=== PATIENT | male | born 1995 | race African-American/Black ===

== ENCOUNTER 2024-05-19 11:44 | Observation (INO) ==
--- NOTE | 2024-05-19 12:38 | XRay Report ---
XR chest 1V not portable CLINICAL HISTORY: Chest pain, nonspecific COMPARISON STUDY: No previous studies for comparison. FINDINGS: Lung volumes are normal. Lungs are clear. There is no pneumothorax or pleural effusion. Car diac size is normal. Mediastinal contours are normal. There is no evidence for pulmonary edema. IMPRESSION: No acute cardiopulmonary findings. ACT 112: Negative or not required by law. Electronically signed by: Amauri Sloan M.D. 05/19/2024 12:37 PM
[2024-05-19 12:40] LABS: Basophils # (auto) 0.04 K/uL (0.00-0.20); Basophils % (auto) 1.1 %; Eosinophils # (auto) 0.13 K/uL (0.00-0.50); Eosinophils % (auto) 3.5 %; Hematocrit (blood only) 46.3 % (42.0-52.0); Hemoglobin 15.3 g/dl (14.0-18.0); Immature Granulocytes # (auto) 0.04 K/uL (0.01-0.20); Immature Granulocytes % (auto) 1.1 %; Lymphocytes # (auto) 1.47 K/uL (1.20-3.40); Lymphocytes % (auto) 39.8 %; Mean Corpuscular Volume 78.7 fL (80.0-100.0); Mean Platelet Volume 9.4 fL (9.4-12.4); Monocytes # (auto) 0.33 K/uL (0.11-0.59); Monocytes % (auto) 8.9 %; Neutrophils # (auto) 1.68 K/uL (1.40-6.50); Neutrophils % (auto) 45.6 %; Platelet Count 336 K/uL (130-400); RDW Coefficient of Variation 12.1 % (11.5-14.5); RDW Standard Deviation 34.5 fL (36.4-46.3); Red Blood Count 5.88 M/uL (4.70-6.10); White Blood Count 3.69 K/ul (4.8-10.8)
[2024-05-19 12:59] LABS: Albumin Level 4.9 gm/dl (3.4-5.0); Anion Gap 5 (3-11); Bilirubin,Total 1.3 mg/dl (0.2-1.0); Calcium 10.3 mg/dl (8.6-10.3); Carbon Dioxide 32 mmol/L (21-32); Chloride 105 mmol/L (98-107); Potassium 4.5 mmol/L (3.5-5.1); Sodium 142 mmol/L (136-145)
[2024-05-19 13:05] LABS: Alanine Aminotransferase 39 U/L (7-52); Albumin Globulin Ratio 1.6 (0.9-2); Alkaline Phosphatase 103 U/L (34-104); Aspartate Aminotransferase 29 U/L (13-39); BUN Creatinine Ratio 10.1 (10-20); Blood Urea Nitrogen 13 mg/dl (6-23); C Reactive Protein < 0.50 mg/dl (0-0.5); Creatinine Clr Calc Pharmacy 102.6 ml/min; Globulin 3.1 gm/dl (2.5-4.0); Glucose 88 mg/dl (70-99(Fasting))
[2024-05-19 13:07] LABS: Partial Thromboplastin Time 26 Seconds (21-31); Prothrombin Time 10.7 Seconds (9.0-12.0)
[2024-05-19 13:10] LABS: Troponin I High Sensitivity 20.3 pg/ml (0-20)
[2024-05-19] MEDS: ASPIRIN CHEW 324 MG PO STA (14:21)
--- NOTE | 2024-05-19 15:32 | XCELERA ---
[id number]
--- NOTE | 2024-05-19 16:44 | Emergency Department Note ---
History of Present Illness General Chief complaint: Chest Pain Stated complaint: CHEST PAIN, GRADUAL PAIN/DIZZINES FOR PAST 3 WKS Time Seen by Provider: 05/19/24 12:18 Source: patient Limitations: no limitations History of Present Illness Maximum Pain Intensity: 6 Patient is a 28-year-old male presenting from [facility] with left-sided chest pain for the past 3 weeks. Ports the pain radiates from his left chest under his left breast. Worse when he lays flat. He had similar episode a year prior which resolved on its own. Denies any lightheadedness, dizziness, shortness of breath, nausea, vomiting, lower extremity swelling or pain. No family or individual cardiac history. No history of DVT/PE. No drug or alcohol use reported. Home Medications Medication Instructions Recorded Confirmed Type cetirizine 10 mg tablet (Zyrtec) 10 mg PO DAILY 05/19/24 05/19/24 History Allergies Allergy/AdvReac Type Severity Reaction Status Date / Time No Known Allergies Allergy Verified 05/19/24 16:24 Past Med/Surg History Problem List (Updated 05/19/24 @ 16:44 by Gm Rey MD) Pericarditis (Acute) Social History Smoking Status: Never smoker Preferred Language: Luxembourgish Feels Safe at Home: Yes Review of Systems See HPI for pertinent positives & negatives. Physical Exam Vital Signs Vital Signs - 24 hr 05/19/24 11:48 05/19/24 13:48 05/19/24 13:52 Temperature 36.6 C Temperature Source Temporal Artery Scan Pulse Rate 61 51 L Pulse Rate [Apical] Pulse Rate from SpO2 Sensor Pulse Rhythm Pulse Rhythm [Apical] Pulse Strength [Apical] Respiratory Rate 20 Respiratory Effort / Characteristics Non-Labored Spontaneous Respiratory Depth Normal Respiratory Pattern Blood Pressure 134/71 Blood Pressure [Left Arm] Blood Pressure Mean 92 Blood Pressure Mean [Left Arm] Blood Pressure Position [Left Arm] Pulse Oximetry 98 100 Oxygen Delivery Method Room Air Room Air Sepsis Recent Fever Within 48 Hours No Sepsis New/Unexplained Change in Mental Status No Sepsis Action Taken by Nursing No Action Required 05/19/24 13:52 05/19/24 13:52 05/19/24 14:00 Temperature Temperature Source Pulse Rate 50 L Pulse Rate [Apical] 50 L Pulse Rate from SpO2 Sensor Pulse Rhythm Regular Pulse Rhythm [Apical] Regular Pulse Strength [Apical] Normal Respiratory Rate 18 18 Respiratory Effort / Characteristics Non-Labored Spontaneous Respiratory Depth Normal Respiratory Pattern Regular Blood Pressure 125/75 Blood Pressure [Left Arm] 110/87 Blood Pressure Mean 103 Blood Pressure Mean [Left Arm] 94 Blood Pressure Position [Left Arm] Semi-fowlers Pulse Oximetry 99 99 Oxygen Delivery Method Room Air Room Air Sepsis Recent Fever Within 48 Hours Sepsis New/Unexplained Change in Mental Status Sepsis Action Taken by Nursing 05/19/24 14:15 05/19/24 14:30 05/19/24 15:00 Temperature Temperature Source Pulse Rate 53 L 59 L 46 L Pulse Rate [Apical] Pulse Rate from SpO2 Sensor 54 L 59 L Pulse Rhythm Pulse Rhythm [Apical] Pulse Strength [Apical] Respiratory Rate 18 24 18 Respiratory Effort / Characteristics Respiratory Depth Respiratory Pattern Blood Pressure 133/62 141/90 H Blood Pressure [Left Arm] Blood Pressure Mean 85 107 Blood Pressure Mean [Left Arm] Blood Pressure Position [Left Arm] Pulse Oximetry 98 97 97 Oxygen Delivery Method Room Air Room Air Room Air Sepsis Recent Fever Within 48 Hours Sepsis New/Unexplained Change in Mental Status Sepsis Action Taken by Nursing 05/19/24 15:33 05/19/24 16:00 Temperature Temperature Source Pulse Rate 52 L 55 L Pulse Rate [Apical] Pulse Rate from SpO2 Sensor 52 L Pulse Rhythm Pulse Rhythm [Apical] Pulse Strength [Apical] Respiratory Rate 18 16 Respiratory Effort / Characteristics Respiratory Depth Respiratory Pattern Blood Pressure 135/81 126/84 Blood Pressure [Left Arm] Blood Pressure Mean 99 98 Blood Pressure Mean [Left Arm] Blood Pressure Position [Left Arm] Pulse Oximetry 98 93 Oxygen Delivery Method Room Air Room Air Sepsis Recent Fever Within 48 Hours Sepsis New/Unexplained Change in Mental Status Sepsis Action Taken by Nursing See below Constitutional WD/WN, vitals as above Respiratory normal respiratory effort, lungs clear to auscultation Cardiovascular RRR, no murmur, no edema Extremities: normal capillary refill; no calf tenderness, no pedal edema and no edema Course Administered Medications Discontinued Medications Aspirin (Aspirin Chew 324 Mg) 324 mg PO NOW STA Stop: 05/19/24 14:08 Last Admin: 05/19/24 14:21 Dose: 324 mg Documented By: Medical Decision Making Differential Diagnosis ACS, DVT, myocarditis, pericarditis, costochondritis, GERD, anxiety Medical Records Attestation: I reviewed the patient's medical records. Home Medications Current Medication List: was personally reviewed by me Laboratory Data Attestation: I reviewed the patient's lab results. 05/19/24 12:05 05/19/24 12:05 Lab Results 05/19/24 05/19/24 Range/Units 12:05 14:20 WBC 3.69 L (4.8-10.8) K/ul RBC 5.88 (4.70-6.10) M/uL Hgb 15.3 (14.0-18.0) g/dl Hct 46.3 (42.0-52.0) % MCV 78.7 L (80.0-100.0) fL MCH 26.0 (25.0-34.0) pg MCHC 33.0 (32.0-36.0) g/dL RDW Std Deviation 34.5 L (36.4-46.3) fL RDW Coeff of Clary 12.1 (11.5-14.5) % Plt Count 336 (130-400) K/uL MPV 9.4 (9.4-12.4) fL Immature Gran % (Auto) 1.1 % Neut % (Auto) 45.6 % Lymph % (Auto) 39.8 % Swift % (Auto) 8.9 % Eos % (Auto) 3.5 % Baso % (Auto) 1.1 % Neut # (Auto) 1.68 (1.40-6.50) K/uL Lymph # (Auto) 1.47 (1.20-3.40) K/uL Swift # (Auto) 0.33 (0.11-0.59) K/uL Eos # (Auto) 0.13 (0.00-0.50) K/uL Baso # (Auto) 0.04 (0.00-0.20) K/uL Immature Gran # (Auto) 0.04 (0.01-0.20) K/uL ESR 22 H (0-15) mm/hr PT 10.7 (9.0-12.0) Seconds INR 1.0 (0.9-1.1) APTT 26 (21-31) Seconds PTT Ratio 1.0 Sodium 142 (136-145) mmol/L Potassium 4.5 (3.5-5.1) mmol/L Chloride 105 (98-107) mmol/L Carbon Dioxide 32 (21-32) mmol/L Anion Gap 5 (3-11) BUN 13 (6-23) mg/dl Creatinine 1.29 (0.6-1.4) mg/dl Est Cr Clr Drug Dosing 102.6 ml/min eGFR 76.50 BUN/Creatinine Ratio 10.1 (10-20) Glucose 88 (70-99(Fasting)) mg/dl Calcium 10.3 (8.6-10.3) mg/dl Total Bilirubin 1.3 H (0.2-1.0) mg/dl AST 29 (13-39) U/L ALT 39 (7-52) U/L Alkaline Phosphatase 103 (34-104) U/L Troponin I High Sens 20.3 H 29.3 H (0-20) pg/ml C-Reactive Protein < 0.50 (0-0.5) mg/dl Total Protein 8.0 (6.0-8.3) gm/dl Albumin 4.9 (3.4-5.0) gm/dl Globulin 3.1 (2.5-4.0) gm/dl Albumin/Globulin Ratio 1.6 (0.9-2) Imaging Data Attestation: I personally reviewed and interpreted this imaging study as follows: My Impression: No acute cardiopulmonary process noted. Radiologist's Impression: Chest X-Ray 05/19/24 11:50 XR chest 1V not portable CLINICAL HISTORY: Chest pain, nonspecific COMPARISON STUDY: No previous studies for comparison. FINDINGS: Lung volumes are normal. Lungs are clear. There is no pneumothorax or pleural effusion. Cardiac size is normal. Mediastinal contours are normal. There is no evidence for pulmonary edema. IMPRESSION: No acute cardiopulmonary findings. ACT 112: Negative or not required by law. Electronically signed by: Amauri Sloan M.D. 05/19/2024 12:37 PM ECG Data Attestation: I personally reviewed and interpreted this ECG as follows: Indication: + chest pain Rate (beats per minute): 51 Rhythm: + normal sinus ECG Intervals/blocks: + Normal QRS, + Normal MS and + Normal QT-c ECG Hayden: + Normal ECG ST segments: + ST elevation (diffuse w/o reciprocal changes ) Comparison ECG Date: no prior available Additional Comments: Diffuse concave ST elevations without reciprocal changes noted. Consistent with pericarditis. MDM Narrative Patient is a 28-year-old male who presents with 3 weeks of ongoing chest pain. PERC negative and low concern for PE. Pain is positional and worse when laying flat. EKG shows diffuse ST elevations without reciprocal changes. Clinical picture along with EKG consistent with pericarditis. Initial troponin of 20. I reviewed the case with on-call cardiology with [facility] group who recommends echocardiogram and repeat troponin. Echocardiogram read as normal per cardiology. Repeat troponin of 29. Cardiology recommends treatment with anti-inflammatories and colchicine. Patient will be admitted to hospitalist service for further management of myopericarditis. Impression & Plan Pericarditis Admit for ACS r/o Discharge Plan Visit Data Chief Complaint: Chest Pain Stated Complaint: CHEST PAIN, GRADUAL PAIN/DIZZINES FOR PAST 3 WKS ED Provider: Gm Rey Discharge Problem: Pericarditis Forms Stand Alone Forms: My [facility] Prescriptions Prescriptions: No Action cetirizine [Zyrtec] 10 mg Tablet 10 mg PO DAILY Referrals Referrals: Carrillo WILLARD [Primary Care Provider] -
--- NOTE | 2024-05-19 19:24 | History & Physical Report ---
Date of Service May 19, 2024 Assessment & Plan (1) Pericarditis: Plan Pt is a 28 yo male without a significant past medical history who presents to the hospital on 05/19 for chest pain and admitted for pericarditis. #Pericarditis - EKG on admission with diffuse ST elevations - echo on admission with normal EF, no pericardial effusion - trop on admission 20 -> 29, will trend to peak - will do antiinflammatory therapy; colchicine and ibuprofen - am EKG ordered VTE prophylaxis: low risk History of Present Illness Chief Complaint: Chest pain Primary Care Provider: SUDHEER Poe Pt is a 28 yo male without a significant past medical history who presents to the hospital on 05/19 for chest pain and admitted for pericarditis. Pt states that symptoms started about 3 weeks ago. He states he usually works out 4x a week and has been able to do so without issue, but the last 3 weeks, particularly when laying flat at night, he has noticed L sided chest pain/tightness under the breast. He denies SOB. He denies syncopal episodes or feeling like he may pass out. No palpitations. No nausea or vomiting or diarrhea. He states he had an EKG in office years ago for chest pain that was similar but different but the EKG then was fine and no episode of chest pain again until the last 3 weeks. No family hx of early cardiac disease. The chest pain does not worsen with exertion. Allergies Allergy/AdvReac Type Severity Reaction Status Date / Time No Known Allergies Allergy Verified 05/19/24 16:24 Home Medications Medication Instructions Recorded Confirmed Type cetirizine 10 mg tablet (Zyrtec) 10 mg PO DAILY 05/19/24 05/19/24 History Past Med/Surg History Problem List (Updated 05/19/24 @ 16:44 by Gm Rey MD) Pericarditis (Acute) Social History Smoking Status: Unknown if ever smoked Do You Dip or Chew Tobacco: No; Hx Alcohol Use: No Hx Substance Use: No Preferred Language: Mongolian Communication Ability: Effective Bus Monitor Required: No Beliefs That Will Affect Care: None Current Living Situation: Other Current Living Situation Comment: SUDHEER POE Feels Safe at Home: Yes Assistive Devices: None Review of Systems Review of Systems: Per HPI. Physical Exam Physical Exam: General: Alert and oriented, no acute distress, HEENT: Normocephalic, moist oral mucosa, Cardio: Regular rate and rhythm, no murmur, no tenderness to palpation of chest pain area Resp: Lungs clear to auscultation b/l, no wheezes or rhonchi, Skin: Warm, pink, dry, Results & Data Results & Data Vital Signs (Past 12 Hours) Vital Signs Temp Pulse Pulse Resp BP BP Pulse Ox 05/19/24 19:00 65 17 144/79 H 97 05/19/24 18:33 51 L 14 141/94 H 98 05/19/24 18:00 58 L 20 147/84 H 99 05/19/24 17:42 54 L 05/19/24 17:30 50 L 18 145/81 H 98 05/19/24 17:00 50 L 18 139/83 97 05/19/24 16:30 56 L 20 136/79 97 05/19/24 16:00 55 L 16 126/84 93 05/19/24 15:33 52 L 18 135/81 98 05/19/24 15:00 46 L 18 141/90 H 97 05/19/24 14:30 59 L 24 133/62 97 05/19/24 14:15 53 L 18 98 05/19/24 14:00 125/75 05/19/24 13:52 50 L 18 99 05/19/24 13:52 50 L 18 110/87 99 05/19/24 13:52 100 05/19/24 13:48 51 L 05/19/24 11:48 36.6 C 61 20 134/71 98 O2 Del Method 05/19/24 19:00 Room Air 05/19/24 18:33 Room Air 05/19/24 18:00 Room Air 05/19/24 17:42 05/19/24 17:30 Room Air 05/19/24 17:00 Room Air 05/19/24 16:30 Room Air 05/19/24 16:00 Room Air 05/19/24 15:33 Room Air 05/19/24 15:00 Room Air 05/19/24 14:30 Room Air 05/19/24 14:15 Room Air 05/19/24 14:00 05/19/24 13:52 Room Air 05/19/24 13:52 Room Air 05/19/24 13:52 Room Air 05/19/24 13:48 05/19/24 11:48 Room Air Supervising Physician Co-Signing Physician Notes I personally saw and examined the patient. I independently reviewed the labs, EKG, imaging, problem list, medication list, past medical history and family history. I verified all vlae points and agree with Dr. Desi Armijo DO with the following exceptions and/or additions: 28-year-old male presents to the ER with chest pain. Nonexertional. Worse on lying down. O/E HS RRR, no murmurs, Chest CTAB A/P Pericarditis - colchicine + ibuprofen, TTE without pericardial effusion, monitor overnight Resident Activity Tracking Resident Involvement: Resident Care Provided Care Provided: Adult Hospital Medicine
[2024-05-19] MEDS: COLCHICINE 0.6 MG TAB PO SCH (20:12)
[2024-05-19] MEDS: IBUPROFEN 600 MG TAB PO SCH (20:12)
[2024-05-19] MEDS: IBUPROFEN 200 MG/10 ML UDC PO SCH (20:13)
[2024-05-19] MEDS ORDERED: IBUPROFEN 600 MG TAB PO SCH (21:00)
--- NOTE | 2024-05-19 21:37 | Electrocardiogram Report ---
Test Reason : Blood Pressure : */* mmHG Vent. Rate : 51 BPM Atrial Rate : 51 BPM P-R Int : 220 ms QRS Dur : 78 ms QT Int : 376 ms P-R-T Axes : 53 12 27 degrees QTcB Int : 346 ms Sinus bradycardia with sinus arrhythmia with 1st degree A-V block Cannot rule out Anterior infarct , age undetermined ST elevation, consider early repolarization vs pericarditis Abnormal ECG No previous ECGs available Confirmed by Luther Tirado ([id number]) on 05/19/2024 9:36:59 PM Referred By: Confirmed By: Luther Tirado
[2024-05-19] MEDS ORDERED: ACETAMINOPHEN 325 MG TAB PO PRN (22:52)
[2024-05-19] MEDS ORDERED: POLYETHYLENE (MIRALAX) 17 GM PACK PO PRN (22:52)
[2024-05-19] MEDS ORDERED: ONDANSETRON INJ 2 MG/ML 2 ML VIAL IV PRN (22:52)
[2024-05-20] MEDS: IBUPROFEN 600 MG TAB PO SCH (02:38)
[2024-05-20 06:04] LABS: Basophils # (auto) 0.05 K/uL (0.00-0.20); Basophils % (auto) 1.4 %; Eosinophils # (auto) 0.24 K/uL (0.00-0.50); Eosinophils % (auto) 6.6 %; Hematocrit (blood only) 44.4 % (42.0-52.0); Hemoglobin 14.9 g/dl (14.0-18.0); Immature Granulocytes # (auto) 0.04 K/uL (0.01-0.20); Immature Granulocytes % (auto) 1.1 %; Lymphocytes # (auto) 1.73 K/uL (1.20-3.40); Lymphocytes % (auto) 47.7 %; Mean Corpuscular Hemoglobin 26.1 pg (25.0-34.0); Mean Corpuscular Hgb Conc 33.6 g/dL (32.0-36.0); Mean Corpuscular Volume 77.9 fL (80.0-100.0); Mean Platelet Volume 9.2 fL (9.4-12.4); Monocytes # (auto) 0.35 K/uL (0.11-0.59); Monocytes % (auto) 9.6 %; Neutrophils # (auto) 1.22 K/uL (1.40-6.50); Neutrophils % (auto) 33.6 %; Platelet Count 307 K/uL (130-400); RDW Coefficient of Variation 12.2 % (11.5-14.5); RDW Standard Deviation 34.2 fL (36.4-46.3); White Blood Count 3.63 K/ul (4.8-10.8)
[2024-05-20 06:24] LABS: Albumin Globulin Ratio 1.7 (0.9-2); Albumin Level 4.3 gm/dl (3.4-5.0); BUN Creatinine Ratio 12.9 (10-20); Bilirubin,Total 1.4 mg/dl (0.2-1.0); Calcium 9.5 mg/dl (8.6-10.3); Creatinine Clr Calc Pharmacy 105.9 ml/min; Globulin 2.6 gm/dl (2.5-4.0); Potassium 4.4 mmol/L (3.5-5.1); Total Protein 6.9 gm/dl (6.0-8.3)
--- NOTE | 2024-05-20 06:39 | Billing Data ---
Date of Service May 19, 2024 Coding Level of Care Code 62091 INT INP/OBS CARE
[2024-05-20 08:06] VITALS: RESP 20
--- NOTE | 2024-05-20 12:33 | Discharge Summary ---
Date of Service May 20, 2024 Admission HPI Per Admitting Provider Pt is a 28 yo male without a significant past medical history who presents to the hospital on 05/19 for chest pain and admitted for pericarditis. Pt states that symptoms started about 3 weeks ago. He states he usually works out 4x a week and has been able to do so without issue, but the last 3 weeks, particularly when laying flat at night, he has noticed L sided chest pain/tightness under the breast. He denies SOB. He denies syncopal episodes or feeling like he may pass out. No palpitations. No nausea or vomiting or diarrhea. He states he had an EKG in office years ago for chest pain that was similar but different but the EKG then was fine and no episode of chest pain again until the last 3 weeks. No family hx of early cardiac disease. The chest pain does not worsen with exertion. Admission Exam Per Admitting Provider General: Alert and oriented, no acute distress, HEENT: Normocephalic, moist oral mucosa, Cardio: Regular rate and rhythm, no murmur, no tenderness to palpation of chest pain area Resp: Lungs clear to auscultation b/l, no wheezes or rhonchi, Skin: Warm, pink, dry Principal Diagnosis Acute pericarditis Discharge Exam General: patient resting comfortably, NAD, non-toxic in appearance, answers questions appropriately. Skin: warm, dry, intact HEENT: NC/AT, anicteric sclera, conjunctiva without injection, moist mucus membranes. Heart: +S1/S2, regular, no m/r/g Lungs: equal air entry bilaterally, no rales/rhonchi/wheezes Abd: +BS, soft, NT/ND Ext: warm, no clubbing/cyanosis or edema Neuro: nonfocal, speech intact, no facial droop, moving all extremities. Discharge Data Allergies Allergy/AdvReac Type Severity Reaction Status Date / Time No Known Allergies Allergy Verified 05/19/24 16:24 Consultations 05/19/24 17:56 ED Decision to Admit Stat Hospital Course (1) Pericarditis: Plan Pt is a 28 yo male without a significant past medical history who presents to the hospital on 05/19 for chest pain and admitted for pericarditis. #Pericarditis - EKG on admission with diffuse ST elevations - echo on admission with normal EF, no pericardial effusion - trop on admission 20 -> 29, will trend to peak - will do antiinflammatory therapy; colchicine and ibuprofen - am EKG ordered - D/c with Colchicine 0.6mg BID for 3 months, and ibuprofen Total Time Total Time Spent Total Time Spent (In Minutes): <30 Discharge Plan Discharge Items [facility] Reason For Visit: CHEST PAIN, PERICARDITIS Discharge Diagnosis: Pericarditis Activity: Per Instructions section Non-emergency contact: Primary Care Provider Call non-emergency contact if: your pain is not controlled Follow-up/Referrals: Carrillo WILLARD [Primary Care Provider] - Diet: Regular Addtl Attending Provider Instructions: You were admitted to the hospital for left sided chest pain and labs, imaging, and heart studies were consistent with a diagnosis called pericarditis. You were treated with dunia anti-inflammatory medication called Colchicine and a NSAID called ibuprofen. Your heart studies showed that your heart is strong and largely normal. There was some evidence of increased muscle within the heart, which can be a normal change as we age and as with conditions related to high blood pressure which can be caused by the heart pump rios more strongly. You do not have a history of high blood pressure, but it is a good idea to check up on your blood pressure from time to time to determine if it has been chronically elevated and if medications should be used to decrease these numbers. However, more importantly you should continue your Colchicine for approximately 3 months twice daily. This has been shown by evidence to lower the risk of recurrence of pericarditis. In addition you can continue using Ibuprofen, up to 800mg 6 hours apart or up to 4 times per day for chest tightness and discomfort. Otherwise you are a young healthy man and will quickly improve. A discharge summary will be sent to your primary care physician to ensure continuity of care. Please bring this discharge summary with you to your next office appointment so that your provider can review it at that time. Medications: Your medication list has been reviewed and reconciled upon discharge to ensure accuracy and continuity of care. An updated list of all your medications is included with your hospital discharge paperwork. Please review this list closely, and make note of any changes. We sent a new medication called Colchicine to your pharmacy. Take Colchicine 0.6 mg one tablet twice daily or approximately 12 hours apart for the next 3 months. This medication can cause diarrhea, and if this has been constant and uncomfortable you may take this medication once daily instead of twice daily. Regardless, please continue this medication for 3 months. If you have any issues filling these prescriptions, please call [phone] and ask to leave a message for Dr. Nemesio Kamara. Take your medications as instructed; do not skip a dose of your medicines. Make sure all of your doctors know every medicine you are taking (including ulkb-nix-zyqelfh medicines, vitamins, and supplements). Call your primary care provider before taking any new medicines (including cdvk-buk-ibzczwr medicines, vitamins, and supplements), because some of these may interact with your current medications, or may make your symptoms worse. Tell your primary care provider if you cannot afford your medications. CONTACT YOUR PRIMARY CARE PROVIDER if you experience any of the following: Difficulty following your treatment plan, or difficulty taking medications CALL 911 OR GO TO THE EMERGENCY DEPARTMENT if you experience any of the following: Sudden, severe abdominal pain or nausea/vomiting Severe chest pain, or chest pain that radiates (moves) to your jaw or arm Sudden, severe shortness of breath or difficulty breathing Thank you for allowing us to participate in your care. Pending Studies at Discharge: No Stand-Alone Forms: My [facility] Skilled Items Patient informed of condition?: Yes Discharge Level of Care: Other Communicable Disease: No Discharge Prognosis: Stable Lines: None Urinary Catheter: No Medications and DC Order Prescriptions: New colchicine 0.6 mg capsule 0.6 mg PO BID Qty: 180 0RF Rx Instructions: Please take Colchicine 0.6mg twice daily for the next 3 months. A 3 month supply has been prescribed and should be completed as prescribed. If this medication causes persistent diarrhea you may reduce this dose to once daily for 3 months. Continued cetirizine [Zyrtec] 10 mg Tablet 10 mg PO DAILY Discharge Orders: Discharge Order (Routine); Ordered 05/20/24 Ordered By: Ozzie Claudio/Other Patient Handouts: Colchicine Oral Tablet, ED Pericarditis Admission Data Admit Date/Time: 05/19/24 19:45 Attending Provider: Landon Teran Admit Provider: Desi Armijo Primary Care Provider: Carrillo WILLARD Other Providers: Paty Caraballo Other Interventions: Discharge Summary Assessment (RN) Last Done: 05/20/24 13:22 Supervising Physician Co-Signing Physician Notes I personally examined the patient and verified all vale points of history and exam, discussed case, and agree with decision making with Dr Polk feeling a bit better, does feel up to leaving hospital. d/w [facility] physician and signed out plan of care vitals noted nad heent nc at mmm breathing unlabored no accessory muscles good effort skin no rashes no pallor or icterus EKG, labs, CXR and echo report noted mild pericarditis - colchicine BID x 12wks (discussed can reduce if loose stools), ibuprofen QID prn pain; hold off on strenuous activity until at least a week after sx have resolved; echo without significant pericardial findings elevated troponin - ?possibly related to pericarditis vs baseline LVH - but with nothing concerning really don't believe any true myocarditis at play LVH - ?baseline HTN - f/u BP at outpt f/u; if none, then consider further w/u stable for discharge, otherwise as above Resident Activity Tracking Resident Involvement: Resident Care Provided Care Provided: Adult Hospital Medicine
[2024-05-20 12:44] VITALS: BP 123/74; TEMP 97.5; O2SAT 96
[2024-05-20 13:25] VITALS: PULSE 51
--- NOTE | 2024-05-20 15:34 | Billing Data ---
Date of Service May 20, 2024 Coding Level of Care Code 56761 IN/OBS DISCH 30 MIN/LESS
--- NOTE | 2024-05-20 22:21 | Electrocardiogram Report ---
Test Reason : Blood Pressure : */* mmHG Vent. Rate : 47 BPM Atrial Rate : 57 BPM P-R Int : * ms QRS Dur : 82 ms QT Int : 428 ms P-R-T Axes : 58 33 35 degrees QTcB Int : 378 ms Sinus bradycardia with 2nd degree A-V block (Mobitz I) ST elevation, consider early repolarization Abnormal ECG When compared with ECG of 20-May-2024 00:24, Sinus rhythm is now with 2nd degree A-V block (Mobitz I) Confirmed by Luther Tirado ([id number]) on 05/20/2024 10:21:23 PM Referred By: Carrillo WILLARD Confirmed By: Luther Tirado
--- NOTE | 2024-05-20 22:21 | Electrocardiogram Report ---
Test Reason : Blood Pressure : */* mmHG Vent. Rate : 50 BPM Atrial Rate : 50 BPM P-R Int : 246 ms QRS Dur : 92 ms QT Int : 410 ms P-R-T Axes : 57 32 21 degrees QTcB Int : 373 ms Sinus bradycardia with 1st degree A-V block ST elevation, consider early repolarization vs pericarditis When compared with ECG of 19-May-2024 11:54, Minimal criteria for Anterior infarct are no longer Present Confirmed by Luther Tirado ([id number]) on 05/20/2024 10:21:00 PM Referred By: Carrillo SCI Confirmed By: Luther Tirado
== END 2024-05-20 14:45 | DRG 316 ==
LOC: ED 11:44 → INTOOBSV 19:45 → SUATTDRO 19:45 → 4W 19:45
DX: I31.9 Disease of pericardium, unspecified